=== PATIENT | female | born 1940 | race Caucasian/White ===

== ENCOUNTER 2019-11-05 12:53 | Inpatient (IN) | payer MEDICARE ==
[~2019-11-05] VITALS: Ht 162.6 cm; Wt 94.0 kg
[2019-11-05] MEDS ORDERED: INSULIN DETEMIR (13:12)
[2019-11-05] MEDS ORDERED: CHOL-9 PO (13:12)
[2019-11-05] MEDS ORDERED: ROSU20TA2 PO (13:12)
[2019-11-05] MEDS ORDERED: ESCI10TA PO (13:12)
[2019-11-05] MEDS ORDERED: CALC-20 PO (13:12)
[2019-11-05] MEDS ORDERED: LOSA50TA3 PO (13:12)
[2019-11-05] MEDS ORDERED: LEVO50TA PO (13:12)
[2019-11-05] MEDS ORDERED: ESTR0.623 PO (13:12)
[2019-11-05] MEDS ORDERED: INSU100V28 (13:12)
[2019-11-05] MEDS ORDERED: CARV12.5 PO (13:12)
--- NOTE | 2019-11-05 13:16 | NUR ---
PATIENT IS AWAKE, ALERT AND IS COOPERATIVE. COVID SWAB DONE AND SENT TO LAB
--- NOTE | 2019-11-05 14:04 | NUR ---
report given to cameron francis. patient aware of admission to hospital
[2019-11-05 14:13] VITALS: BP 144/78
--- NOTE | 2019-11-05 14:30 | NUR ---
Pt admitted to [facility] via wheelchair, ambulated to bed with steady gait. AOx2, knows she's in the hospital but doesn't know the name. Responds to questions appropriately, denied any suicidal ideation and attempts. On RA with no SOB or distress noted at this time. IV on right AC from SNF removed per GPS protocol. Call light and phone removed, checked room for ligature, environment safety checks done. Oriented to room and hospital protocols, verbalized understanding. Bed locked in lowest position with siderails 2x up. Will continue to monitor
[2019-11-05] MEDS ORDERED: MAGNESIUM HYDROXIDE 30 ML LIQUID UDC PO PRN (15:15)
[2019-11-05] MEDS ORDERED: LORAZEPAM 1 MG TABLET PO PRN (15:15)
[2019-11-05] MEDS ORDERED: MAG HYDROX/AL HYDROX/SIMETH 30 ML LIQUID UDC PO PRN (15:15)
[2019-11-05] MEDS ORDERED: ACETAMINOPHEN 325 MG TABLET PO PRN (15:15)
[2019-11-05] MEDS ORDERED: BLOOD SUGAR DIAGNOSTIC 1 EACH STRIP VI ONE (15:15)
--- NOTE | 2019-11-05 16:00 | NUR ---
Social Work Note: This story writer spoke with patient's Franklin ([phone]) who wanted to drop off patient's clothes. This story writer shared nursing number to call and confirm.
--- NOTE | 2019-11-05 17:50 | NUR ---
Notified Dr. Ibarra for admitting orders and to reconcile medications, awaiting orders.
--- NOTE | 2019-11-05 19:54 | NUR ---
Spoke to Dr. Ibarra. Dr. Ibarra to come to [facility]. Will continue to monitor patient.
[2019-11-05 20:00] VITALS: BP 137/59
--- NOTE | 2019-11-05 20:00 | NUR ---
Received patient awake and confused. Patient believes that she is close by to her assisted living. Reoriented patient to let her know that she is at [facility]. Patient shows no signs or symptoms of distress at this time. Vital signs stable. Patient denies having any thoughts of hurting herself at this time. Patient states, "I would never think of hurting myself in any way." Dr. Ibarra here to see patient. Will continue to monitor patient.
[2019-11-05] MEDS ORDERED: DEXTROSE 50% 50 ML DISP.SYRIN IV PRN (22:00)
[2019-11-05] MEDS: BLOOD SUGAR DIAGNOSTIC 1 EACH STRIP VI SCH (22:00)
[2019-11-05] MEDS ORDERED: CEFTRIAXONE 1 G VIAL ONE (22:15)
[2019-11-05] MEDS: CEFTRIAXONE 1 G in IV DEXTROSE 5% 50 ML IV SCH (22:25)
[2019-11-05] MEDS: TEMAZEPAM 7.5 MG CAPSULE PO PRN (22:27)
--- NOTE | 2019-11-05 23:04 | NUR ---
IV heplock 22g placed on left hand. Antibiotics running. Will continue to monitor patient.
[2019-11-05] MEDS: INSULIN REGULAR, HUMAN 300 UNIT/3 ML VIAL SQ PRN (23:16)
[2019-11-06 04:00] VITALS: BP 131/77
[2019-11-06 06:01] LABS: BASOPHILS % (AUTO) 0.6 % (0.0-2.0); EOSINOPHILS # (AUTO) 0.2 K/uL (0.0-0.7); EOSINOPHILS % (AUTO) 3.3 % (0.0-7.0); HEMATOCRIT 38.9 % (31.2-41.9); HEMOGLOBIN 13.3 g/dL (10.9-14.3); LYMPHOCYTES # (AUTO) 2.9 K/uL (20.0-40.0); LYMPHOCYTES % (AUTO) 42.8 % (20.5-51.5); MEAN CORPUSCULAR HEMOGLOBIN 31.2 uug (24.7-32.8); MEAN CORPUSCULAR HGB CONC 34 g/dL (32.3-35.6); MEAN CORPUSCULAR VOLUME 91.5 fL (75.5-95.3); MONOCYTES # (AUTO) 0.7 K/uL (2.0-10.0); MONOCYTES % (AUTO) 10.9 % (0.0-11.0); NEUTROPHILS # (AUTO) 2.9 K/uL (1.8-8.9); NEUTROPHILS % (AUTO) 42.4 % (38.5-71.5); PLATELET COUNT (AUTO) 311 K/uL (179-408); RED BLOOD CELL COUNT(AUTO) 4.25 MIL/uL (3.63-4.92); WHITE BLOOD COUNT (AUTO) 6.9 K/uL (3.8-11.8)
[2019-11-06 06:21] LABS: ALANINE AMINOTRANSFERASE 38 U/L (14-59); ALKALINE PHOSPHATASE 36 U/L (50-136); ASPARTATE AMINOTRANSFERASE 36 U/L (15-37); BILIRUBIN,TOTAL 0.4 mg/dL (0.2-1.0); CARBON DIOXIDE 24 mmol/L (21-32); CHLORIDE 109 mmol/L (98-107); CREATINE KINASE, TOTAL 70 U/L (26-192); CREATININE 1.7 mg/dL (0.6-1.3); GLUCOSE 114 mg/dL (74-106); MAGNESIUM 2.2 mg/dL (1.8-2.4); PHOSPHOROUS 3.8 mg/dL (2.5-4.9); TOTAL PROTEIN, SERUM 7.5 g/dL (6.4-8.2); UREA NITROGEN, BLOOD 30 mg/dL (7-18)
[2019-11-06] MEDS: BLOOD SUGAR DIAGNOSTIC 1 EACH STRIP VI SCH ×4 (06:40→21:04)
--- NOTE | 2019-11-06 07:13 | NUR ---
Patient shows no signs or symptoms of distress at this time. Vital signs stable throughout the shift. Denies having any suicidal ideations at this time. Will endorse patient to day shift nurse in stable condition.
[2019-11-06] MEDS ORDERED: DULA1.5P SQ (07:23)
[2019-11-06] MEDS ORDERED: INSU200I4 SQ (07:23)
[2019-11-06] MEDS ORDERED: HOME MED MISCELLANEOUS XX SCH ×2 (07:30)
--- NOTE | 2019-11-06 07:45 | NUR ---
Received pt in bed awake AOx2, denied suicidal ideations and feeling of anxiety at this time. On RA with no SOB or distress noted at this time. IV on left hand 22g flushed and intact. No other complaints. Bed locked in lowest position with siderails 2x up.
[2019-11-06 07:59] VITALS: BP 149/56
[2019-11-06] MEDS: CHOLECALCIFEROL 1,000 UNIT TABLET PO SCH (08:44)
[2019-11-06] MEDS: CALCIUM CARB/VITAMIN D 600-400 MG TABLET PO SCH (08:44)
[2019-11-06] MEDS: LOSARTAN POTASSIUM 50 MG TABLET PO SCH (08:44)
[2019-11-06] MEDS: CARVEDILOL 12.5 MG TABLET PO SCH ×2 (08:45→21:04)
[2019-11-06] MEDS ORDERED: ESTROGENS,CONJUGATED 0.625 MG TABLET PO SCH ×2 (09:00)
[2019-11-06] MEDS ORDERED: LEVOTHYROXINE SODIUM 50 MCG TABLET PO SCH (09:00)
--- NOTE | 2019-11-06 10:52 | NUR ---
Social Work Initial Discharge Note: Patient currently resides at [facility] [id number] [place] [address]; ([phone]). Per Franklin ([phone]) wants patient back to her assisted living until he is able to find another placement for patient. This junior underwriter spoke with Marla king ([phone]) who agreed to take patient back once patient is stable. hold worker will work with the patient and the MD regarding appropriate discharge planning. hold worker will form a safe and proper discharge.
--- NOTE | 2019-11-06 10:53 | NUR ---
Social Work Coordination of Care: This fiction and nonfiction writer prose spoke with Marla king ([phone]) from [facility] who agreed to take patient back once patient is stable. This fiction and nonfiction writer prose explained that they would have to give patient and family 30 day notice if they were to not want patient back.
--- NOTE | 2019-11-06 10:53 | NUR ---
Social Work Family Contact: bible worker spoke with patient's Franklin ([phone]) and discussed patient's discharge plan and treatment plan. This adjusto writer operator explained the process of returning back to her assisted living. Per , he wants patient back to her assisted living for the time being until he finds her a different placement.
--- NOTE | 2019-11-06 11:20 | NUR ---
Pt stated she's having diarrhea and went to bathroom 3x, collected stool and sent to lab, made aware. Pt also complained of nausea, called Dr. Ibarra for PRN med. Will follow-up
--- NOTE | 2019-11-06 11:29 | NUR ---
WOUND CARE CONSULT: REVIEWED CHART, NURSING DOCUMENTATION AND PHOTOS WHICH SHOW LEFT ARM ABRASION AND DRY LESIONS TO SCALP, PRESENT ON ADMISSION. DEFER TO MD FOR SCALP LESIONS. RECOMMENDATIONS MADE FOR LEFT ARM ABRASION AND DISCUSSED WITH NURSING STAFF. WILL SEE PRN. IN AGREEMENT WITH PLAN OF CARE. CURRENT SIGIFREDO SCORE IS 21.
--- NOTE | 2019-11-06 11:40 | NUR ---
Social Work Note: Patient's Franklin sent DPOA documents. Patients Franklin is DPOA.
[2019-11-06 12:00] VITALS: BP 115/59
[2019-11-06] MEDS: INSULIN REGULAR, HUMAN 300 UNIT/3 ML VIAL SQ PRN ×3 (12:08→21:07)
[2019-11-06] MEDS: ONDANSETRON 4 MG/2 ML VIAL IV PRN (12:10)
[2019-11-06 12:17] LABS: *BILIRUBIN,URIN NEGATIVE (NEGATIVE); *BLOOD, URINE NEGATIVE (NEGATIVE); *CLARITY,URINE CLEAR (CLEAR); *COLOR,URINE YELLOW (YELLOW); *KETONES,URINE NEGATIVE (NEGATIVE); *UROBILINOGEN,URINE 0.2 E.U./dl (NORMAL); LEUKOCYTE ESTERASE ,URINE 1+ (NEGATIVE); NITRITE, URINE NEGATIVE (NEGATIVE); UGLUCOSE NEGATIVE (NEGATIVE)
[2019-11-06 12:25] LABS: *CREATININE,URINE 166.1 mg/dL (30-125); *URINE TOTAL PROTEIN RANDOM 17.2 mg/dL (<150/24HR)
[2019-11-06 14:30] VITALS: BP 150/63
--- NOTE | 2019-11-06 14:30 | NUR ---
Pt stated that while she was trying to stand up from the toilet, she hit her head on the sink, this was unwitnessed. Pt assisted back to bed, a little unsteady. Forehead is tender to touch, there's already an old bruise on forehead. Vital signs taken, pt asymptomatic, ice applied. Educated patient not to get out of bed, verbalized understanding. Will monitor continuously.
[2019-11-06 14:35] LABS: BACTERIA,URINE FEW /HPF (NONE SEEN); RBC,URINE 0-3 /HPF (0-3); WBC,URINE 0-3 /HPF (0-3)
--- NOTE | 2019-11-06 14:45 | NUR ---
called [facility] exchange to inform Dr. Ibarra
[2019-11-06 14:55] LABS: SQUAMOUS EPITHELIAL CELL,UR FEW /HPF (NONE SEEN)
--- NOTE | 2019-11-06 15:06 | NUR ---
Dr. Ibarra called and informed of the incident, stated to monitor for any changes. No new orders
[2019-11-06 16:00] VITALS: BP 161/65
[2019-11-06] MEDS: NEOMY/BACITRAC/POLYMI OINT 28.35 GM TUBE TOP SCH (16:53)
--- NOTE | 2019-11-06 17:00 | NUR ---
Pt expressed frustration and feelings of anxiety due to not knowing the reason why she's here. She stated that she would like to talk to her psychiatrist to answer her questions. Informed pt of reasons of her hospital stay, verbalized understanding, but would still like to talk to the doctor. Will inform [facility] charge nurse
--- NOTE | 2019-11-06 20:02 | NUR ---
Patient received into care, sitting up in bed, talking with on cell phone. Patient is alert/oriented x2 and has no complaints of pain or discomfort at this time. This nurse explained that cell phone must be placed in locker per unit protocol. This nurse was able to get the patient to contract for safety for any SI. All safety, allergy, and fall precautions are in place. Will continue to monitor and assess.
[2019-11-06 20:39] VITALS: BP 148/59
[2019-11-06] MEDS: CULTURELLE CAPSULE PO SCH (20:52)
[2019-11-06] MEDS: ATORVASTATIN 40 MG TABLET PO SCH (20:52)
[2019-11-06] MEDS: TEMAZEPAM 7.5 MG CAPSULE PO PRN (22:02)
[2019-11-06] MEDS: CEFTRIAXONE 1 G in IV DEXTROSE 5% 50 ML IV SCH (22:02)
--- NOTE | 2019-11-07 05:00 | NUR ---
Patient slept 6.0 hr this shift
[2019-11-07 05:21] VITALS: BP 142/64
--- NOTE | 2019-11-07 06:00 | NUR ---
Patient slept well this shift after given requested prescribed Restoril. Patient woke once and was confused to her location, but was easily redirectable to place/time. All prescribed medications provided as ordered and tolerated well, with no adverse side effects verbalized by patient or noted/observed by this nurse. IV saline lock on left hand is patent and intact. All nursing needs addressed promptly and patient is warm, dry, and comfortable. All safety, allergy, fall, and isolation precautions remain in place. Personal items remain within reach.
[2019-11-07] MEDS: LEVOTHYROXINE SODIUM 50 MCG TABLET PO SCH (06:10)
[2019-11-07] MEDS: BLOOD SUGAR DIAGNOSTIC 1 EACH STRIP VI SCH ×4 (06:37→21:31)
--- NOTE | 2019-11-07 07:20 | NUR ---
This nurse heard patient calling for help after giving report to new shift. This nurse found patient on floor. This nurse helped patient back to bed and assessed patient. Patient found to have no injury. This nurse educated patient regarding asking staff for assistance when needing to get out of bed. Bed alarm activated.
--- NOTE | 2019-11-07 08:00 | NUR ---
patietn on bed, rsting. breakfast served, denies any discomfort. ate well. made comfortable.
[2019-11-07] MEDS: INSULIN REGULAR, HUMAN 300 UNIT/3 ML VIAL SQ PRN ×2 (08:38→11:52)
[2019-11-07] MEDS: CULTURELLE CAPSULE PO SCH ×2 (08:42→21:19)
[2019-11-07] MEDS: CHOLECALCIFEROL 1,000 UNIT TABLET PO SCH (08:42)
[2019-11-07] MEDS: CALCIUM CARB/VITAMIN D 600-400 MG TABLET PO SCH (08:43)
[2019-11-07] MEDS: CARVEDILOL 12.5 MG TABLET PO SCH ×2 (08:57→21:18)
[2019-11-07] MEDS: LOSARTAN POTASSIUM 50 MG TABLET PO SCH (08:57)
[2019-11-07] MEDS ORDERED: INSULIN GLARGINE,HUM 300 UNITS/3 ML CARTRIDGE SQ SCH (09:00)
[2019-11-07] MEDS ORDERED: TRULICITY (DULAGLUTIDE) 1.5MG/0.5ML SQ SCH (09:00)
[2019-11-07] MEDS: NEOMY/BACITRAC/POLYMI OINT 28.35 GM TUBE TOP SCH ×2 (09:30→17:16)
[2019-11-07] MEDS: TRESIBA 200 UNIT/ML SQ SCH (09:39)
--- NOTE | 2019-11-07 10:15 | NUR ---
assisted to bathroom , gait steady but in hurry for bathroom privileges, had x 1 bm and voided. good am care provided, returned to bed, bed alarm on and patient appreciative . resting well for now. made aware to call nurse for assistance to prevent further falls and injury. agreed with nurse.
--- NOTE | 2019-11-07 11:30 | NUR ---
sleeping comfortable. no distress noted.
[2019-11-07 12:47] VITALS: BP 155/61
[2019-11-07] MEDS: ONDANSETRON 4 MG/2 ML VIAL IV PRN (18:27)
--- NOTE | 2019-11-07 18:58 | NUR ---
med for complaint of nausea, no emesis , relief verbalized, resting comfortably.
[2019-11-07 20:46] VITALS: BP 159/63
[2019-11-07] MEDS: ATORVASTATIN 40 MG TABLET PO SCH (21:18)
[2019-11-07] MEDS: CEFTRIAXONE 1 G in IV DEXTROSE 5% 50 ML IV SCH (21:19)
[2019-11-07] MEDS: TEMAZEPAM 7.5 MG CAPSULE PO PRN (21:38)
[2019-11-07] MEDS ORDERED: TRAZODONE 50 MG TABLET PO ONE (22:00)
[2019-11-08 05:35] VITALS: BP 148/67
[2019-11-08] MEDS: LEVOTHYROXINE SODIUM 50 MCG TABLET PO SCH (06:15)
[2019-11-08 06:17] LABS: BASOPHILS % (AUTO) 0.5 % (0.0-2.0); EOSINOPHILS # (AUTO) 0.2 K/uL (0.0-0.7); EOSINOPHILS % (AUTO) 2.2 % (0.0-7.0); HEMATOCRIT 40.5 % (31.2-41.9); HEMOGLOBIN 13.3 g/dL (10.9-14.3); LYMPHOCYTES # (AUTO) 2.9 K/uL (20.0-40.0); LYMPHOCYTES % (AUTO) 39.5 % (20.5-51.5); MEAN CORPUSCULAR HEMOGLOBIN 30.4 uug (24.7-32.8); MEAN CORPUSCULAR HGB CONC 33 g/dL (32.3-35.6); MEAN CORPUSCULAR VOLUME 92.2 fL (75.5-95.3); MONOCYTES # (AUTO) 0.9 K/uL (2.0-10.0); NEUTROPHILS # (AUTO) 3.4 K/uL (1.8-8.9); NEUTROPHILS % (AUTO) 45.8 % (38.5-71.5); PLATELET COUNT (AUTO) 277 K/uL (179-408); RED BLOOD CELL COUNT(AUTO) 4.39 MIL/uL (3.63-4.92); WHITE BLOOD COUNT (AUTO) 7.4 K/uL (3.8-11.8)
[2019-11-08 06:30] LABS: ALKALINE PHOSPHATASE 42 U/L (50-136); ASPARTATE AMINOTRANSFERASE 41 U/L (15-37); BILIRUBIN,TOTAL 0.3 mg/dL (0.2-1.0); CARBON DIOXIDE 26 mmol/L (21-32); CHLORIDE 110 mmol/L (98-107); CREATININE 1.5 mg/dL (0.6-1.3); GLUCOSE 85 mg/dL (74-106); MAGNESIUM 2.2 mg/dL (1.8-2.4); PHOSPHOROUS 4.3 mg/dL (2.5-4.9); POTASSIUM 4.1 mmol/L (3.5-5.1); TOTAL PROTEIN, SERUM 7.1 g/dL (6.4-8.2); UREA NITROGEN, BLOOD 25 mg/dL (7-18)
[2019-11-08 06:52] LABS: ALANINE AMINOTRANSFERASE 40 U/L (14-59)
[2019-11-08] MEDS: BLOOD SUGAR DIAGNOSTIC 1 EACH STRIP VI SCH ×4 (06:57→21:00)
--- NOTE | 2019-11-08 07:01 | NUR ---
Patient slept well at night after receiving restoril and trazodone. Psych consult with dr. Chandler flores. Ordered trazodone and Klonopin. Denies SI, reports being anxious and depressed at home. In the morning, the IV is dislodged completely.
[2019-11-08 08:00] VITALS: BP 142/52
--- NOTE | 2019-11-08 08:00 | NUR ---
Received pt in bed awake oriented to name and place with flat affect. Pt confused and kept asking the same questions. Denied suicidal ideations and feeling anxious at this time. On RA with no SOB or distress noted at this time. Scabs on scalp still noted, reeducated and reinforced not to scratch, verbalized understanding. Dressing on left arm noted. No other complaints at this time. Bed locked in lowest position with siderails 2x up. Bed alarm on. Will monitor
[2019-11-08] MEDS: CALCIUM CARB/VITAMIN D 600-400 MG TABLET PO SCH (09:13)
[2019-11-08] MEDS: CHOLECALCIFEROL 1,000 UNIT TABLET PO SCH (09:13)
[2019-11-08] MEDS: CULTURELLE CAPSULE PO SCH ×2 (09:14→20:51)
[2019-11-08] MEDS: CARVEDILOL 12.5 MG TABLET PO SCH ×2 (09:14→20:51)
[2019-11-08] MEDS: LOSARTAN POTASSIUM 50 MG TABLET PO SCH (09:14)
[2019-11-08] MEDS: CLONAZEPAM 0.5 MG TABLET PO SCH ×2 (09:15→16:34)
[2019-11-08] MEDS: NEOMY/BACITRAC/POLYMI OINT 28.35 GM TUBE TOP SCH ×2 (09:15→16:34)
[2019-11-08] MEDS: TRESIBA 200 UNIT/ML SQ SCH (09:21)
--- NOTE | 2019-11-08 11:30 | NUR ---
Encouraged pt to drink more liquids per Dr. Ibarra's order, pt verbalized understanding. Pt has flat affect, denied suicidal ideations at this time and denied feeling anxious at this time
[2019-11-08 11:48] VITALS: BP 156/68
[2019-11-08] MEDS: INSULIN REGULAR, HUMAN 300 UNIT/3 ML VIAL SQ PRN ×2 (12:06→17:14)
[2019-11-08 16:07] VITALS: BP 159/54
--- NOTE | 2019-11-08 18:34 | NUR ---
Pt stable throughout shift. Denied suicidal ideation at this time. Stated a little anxious, frustrated and upset that she has not been brought down to [facility]. Informed her that she has still IV antibiotics, verbalized understanding but has flat affect. Will endorse to next shift
--- NOTE | 2019-11-08 19:30 | NUR ---
PT PLEASANT WHEN APPROACHED. RECEIVED PT IN NO ACUTE DISTRESS. IV INTACT. PT CAN MAKE HER NEEDS KNOWN.PT HAD NO S.I. SAFETY AND COMFORT PROVIDED.WILL CONTINUE TO MONITOR.
[2019-11-08 20:32] VITALS: BP 156/70
[2019-11-08] MEDS: TRAZODONE 100 MG TABLET PO SCH (20:50)
[2019-11-08] MEDS: ATORVASTATIN 40 MG TABLET PO SCH (20:51)
[2019-11-08] MEDS: CEFTRIAXONE 1 G in IV DEXTROSE 5% 50 ML IV SCH (21:00)
[2019-11-08] MEDS ORDERED: TRAZODONE 100 MG TABLET PO SCH (21:00)
[2019-11-08] MEDS: TEMAZEPAM 7.5 MG CAPSULE PO PRN (22:06)
[2019-11-09 05:52] VITALS: BP 132/56
[2019-11-09] MEDS: LEVOTHYROXINE SODIUM 50 MCG TABLET PO SCH (06:02)
[2019-11-09] MEDS: BLOOD SUGAR DIAGNOSTIC 1 EACH STRIP VI SCH ×4 (06:33→20:19)
--- NOTE | 2019-11-09 06:33 | NUR ---
PT SLEPT COMFORTABLY. PT IN NO ACUTE DISTRESS. IV INTACT. PT NO SUICIDAL IDEATION NOTED. SAFETY AND COMFORT PROVIDED. PRESCRIBED MEDICATION GIVEN AND PT TOLERATED IT WELL. ALL NEEDS ARE MET. WILL ENDORSE TO INCOMING NURSE FOR CONTINUITY OF CARE.
--- NOTE | 2019-11-09 07:10 | NUR ---
Received patient resting in bed, asleep. No acute distress noted, no s/s of SOB. Bed in lowest position, side rails up x2, call light within reach. Will continue to monitor.
[2019-11-09] MEDS: CULTURELLE CAPSULE PO SCH ×2 (08:10→20:16)
[2019-11-09] MEDS: CHOLECALCIFEROL 1,000 UNIT TABLET PO SCH (08:10)
[2019-11-09] MEDS: CALCIUM CARB/VITAMIN D 600-400 MG TABLET PO SCH (08:11)
[2019-11-09] MEDS: NEOMY/BACITRAC/POLYMI OINT 28.35 GM TUBE TOP SCH ×2 (08:11→17:23)
[2019-11-09] MEDS: CLONAZEPAM 0.5 MG TABLET PO SCH ×2 (08:11→17:23)
[2019-11-09] MEDS: TRESIBA 200 UNIT/ML SQ SCH (08:12)
[2019-11-09] MEDS: LOSARTAN POTASSIUM 50 MG TABLET PO SCH (08:16)
[2019-11-09] MEDS: CARVEDILOL 12.5 MG TABLET PO SCH ×2 (08:17→20:15)
[2019-11-09 11:33] VITALS: BP 150/69
[2019-11-09] MEDS: INSULIN REGULAR, HUMAN 300 UNIT/3 ML VIAL SQ PRN ×3 (12:20→20:21)
[2019-11-09 16:00] VITALS: BP 143/64
[2019-11-09 17:04] LABS: A/G RATIO 0.9 (0.7-1.7); ALBUMIN 3.1 g/dL (2.9-4.4); ALPHA-1-GLOBULIN 0.2 g/dL (0.0-0.4); BETA GLOBULIN 1.4 g/dL (0.7-1.3); GAMMA GLOBULIN 0.9 g/dL (0.4-1.8); GLOBULIN, TOTAL 3.6 g/dL (2.2-3.9); M-SPIKE Not Observed g/dL (Not Observed)
--- NOTE | 2019-11-09 19:30 | NUR ---
RECEIVED PT AWAKE , ALERT AND ORIENTEDX3. PT IN NO ACUTE DISTRESS. PT HAS FLAT AFFECT. PT HAD NO SUICIDAL IDEATION. IV INTACT. SAFETY AND COMFORT PROVIDED. WILL CONTINUE TO MONITOR.
[2019-11-09 20:00] VITALS: BP 151/66
[2019-11-09] MEDS: ATORVASTATIN 40 MG TABLET PO SCH (20:14)
[2019-11-09] MEDS: TRAZODONE 100 MG TABLET PO SCH (20:16)
[2019-11-09] MEDS: CEFTRIAXONE 1 G in IV DEXTROSE 5% 50 ML IV SCH (21:04)
[2019-11-09] MEDS: TEMAZEPAM 7.5 MG CAPSULE PO PRN (21:59)
[2019-11-09 22:00] VITALS: BP 139/78
--- NOTE | 2019-11-10 00:37 | NUR ---
PT HAD EPISODES OF FORGETFULNESS.NEEDS REORIENTATION. WILL CONTINUE TO MONITOR.
[2019-11-10 04:00] VITALS: BP 146/71
[2019-11-10] MEDS: LEVOTHYROXINE SODIUM 50 MCG TABLET PO SCH (06:04)
--- NOTE | 2019-11-10 06:12 | NUR ---
PT SLEPT COMFORTABLY. PT GIVEN RESTORIL PER PT REQUEST. PT IN NO ACUTE DISTRESS. PRESCRIBED MEDICATION GIVEN AND PT TOLERATED IT WELL. SAFETY AND COMFORT PROVIDED. ALL NEEDS ARE MET. WILL ENDORSE TO INCOMING NURSE FOR CONTINUITY OF CARE.
[2019-11-10 06:36] LABS: CARBON DIOXIDE 25 mmol/L (21-32); CHLORIDE 110 mmol/L (98-107); CREATININE 1.5 mg/dL (0.6-1.3); GLUCOSE 96 mg/dL (74-106); UREA NITROGEN, BLOOD 25 mg/dL (7-18)
[2019-11-10] MEDS: BLOOD SUGAR DIAGNOSTIC 1 EACH STRIP VI SCH ×2 (06:38→11:22)
[2019-11-10 07:30] VITALS: BP 162/71
--- NOTE | 2019-11-10 08:05 | NUR ---
Social Work Discharge Note: Patient will be discharged back to [facility] [address] [place] [address]; ([phone]). Patients Franklin MORALES ([phone]) will merchandise pickup/receiving associate patient at 1PM. environmental services worker spoke with admin Vinicius ([phone]) at the facility who states they are ready to accept the patient back today. Patient is aware and agreeable with discharge plans. Patients Franklin MORALES ([phone]) is aware and agreeable. Patient is alert and oriented x3, is unable to plan for self-care, but agrees to receiving care at the facility. Patient denies any suicidal or homicidal ideations. Patient will follow-up at the facility with Dr. Patel (Psychiatrist) and Dr. Márquez (Brick Baker). Patient was provided with outpatient mental health resources to [facility] Crisis Line ( ), and the National Suicide Prevention Lifeline ( ). Patient presents with euthymic and congruent mood.
[2019-11-10] MEDS: LOSARTAN POTASSIUM 50 MG TABLET PO SCH (08:13)
[2019-11-10] MEDS: CLONAZEPAM 0.5 MG TABLET PO SCH (08:13)
[2019-11-10] MEDS: CALCIUM CARB/VITAMIN D 600-400 MG TABLET PO SCH (08:13)
[2019-11-10] MEDS: CULTURELLE CAPSULE PO SCH (08:13)
[2019-11-10] MEDS: CHOLECALCIFEROL 1,000 UNIT TABLET PO SCH (08:14)
[2019-11-10] MEDS: CARVEDILOL 12.5 MG TABLET PO SCH (08:14)
[2019-11-10] MEDS: TRESIBA 200 UNIT/ML SQ SCH ×2 (08:26→08:29)
[2019-11-10] MEDS: NEOMY/BACITRAC/POLYMI OINT 28.35 GM TUBE TOP SCH (08:35)
[2019-11-10 10:29] VITALS: BP 137/60
--- NOTE | 2019-11-10 11:01 | NUR ---
Social Work Individual Therapy: touch up worker met with patient for brief counseling. touch up worker assessed for patients level of suicidality. Patient denies SI. Patient is happy to go her new [facility] and is happy to see her . This engineering technical writer provided mental health referrals to patient such as [facility] Crisis Line ( ), [place] Suicide Prevention Lifeline ( ) , [facility] Substance Abuse Helpline ( ). touch up worker encouraged patient to contact a family member or a staff at her facility if she were to have suicidal thoughts. This engineering technical writer provided resources for patient.
[2019-11-10] MEDS: INSULIN REGULAR, HUMAN 300 UNIT/3 ML VIAL SQ PRN (11:24)
--- NOTE | 2019-11-10 12:03 | NUR ---
AAOx4. vitals stable compliant with nursing care. and medication schedule. At dcd time denies Si/HI, as well as auditory or visual hallucinations. Pt. also denies pain or any other discomfort. Patient will dcd to [facility], where she's will be follow up by psychiatrist Dr. Patel and Dr. Tsai. will pick her up via private car and take her to this facility. Belonging's list signed and medications returned to patient. Instructed to follow up with PCP. and psychiatrist. IV line dcd. 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
--- NOTE | 2019-11-10 13:30 | NUR ---
Patient wheeled down by me and surg rn. taken via private car by who signed documentation required at wvd. with nehal her.
== END 2019-11-10 13:00 | DRG 881 ==
LOC: ER 12:53 → GPSOV3 14:00
PROVIDERS: ADMIT Psychiatry & Neurology Psychiatry; ATTEND Family Medicine
DX: F32.9 Major depressive disorder, single episode, unspecified (principal); N17.0 Acute kidney failure with tubular necrosis; N18.9 Chronic kidney disease, unspecified; E11.65 Type 2 diabetes mellitus with hyperglycemia; N39.0 Urinary tract infection, site not specified; R45.851 Suicidal ideations; E78.5 Hyperlipidemia, unspecified; F03.90 Unspecified dementia, unspecified severity, without behavioral disturbance, psychotic disturbance, mood disturbance, and anxiety; F41.9 Anxiety disorder, unspecified; Z90.49 Acquired absence of other specified parts of digestive tract; Z90.710 Acquired absence of both cervix and uterus; Z91.5 Personal history of self-harm; I12.9 Hypertensive chronic kidney disease with stage 1 through stage 4 chronic kidney disease, or unspecified chronic kidney disease; E11.22 Type 2 diabetes mellitus with diabetic chronic kidney disease; F39 Unspecified mood [affective] disorder; Z79.4 Long term (current) use of insulin
CPT/HCPCS: 36415; 71045; 83735; 83970; 84100; 84155; 84156; 84165; 84300; 85025; 87086; 93005; A4663; J0696; J1815; J2405; J7060; U0003-CS